=== PATIENT | male | born 1965 | race Caucasian/White ===

== ENCOUNTER 2019-05-04 10:46 | Day surgery (SDC) | payer BC ==
[~2019-05-04] VITALS: Ht 190.5 cm; Wt 127.9 kg
[2019-05-04 11:31] VITALS: BP 134/94
== END 2019-05-04 14:15 | disposition home or self-care (01) ==
LOC: OUT 10:46
PROVIDERS: ATTEND Internal Medicine
DX: K57.30 Diverticulosis of large intestine without perforation or abscess without bleeding (principal); K63.89 Other specified diseases of intestine; K29.70 Gastritis, unspecified, without bleeding; K44.9 Diaphragmatic hernia without obstruction or gangrene; K21.9 Gastro-esophageal reflux disease without esophagitis; E78.5 Hyperlipidemia, unspecified; E66.9 Obesity, unspecified
CPT/HCPCS: 43239; 45378; 88305; J2704; J3010; J7120; 88342